=== PATIENT | male | born 1985 | race Caucasian/White ===

== ENCOUNTER 2017-06-14 13:03 | Day surgery (SDC) | payer BC ==
[~2017-06-14] VITALS: Ht 182.9 cm; Wt 101.0 kg
[2017-06-14 13:22] VITALS: BP 129/79
[2017-06-14] MEDS ORDERED: LACTATED RINGERS 1,000 ML IV SCH (14:00)
[2017-06-14] MEDS ORDERED: FENTANYL PF 100 MCG/2ML ONE (14:08)
[2017-06-14] MEDS ORDERED: MIDAZOLAM 1 MG/ML, 2ML ONE (14:08)
[2017-06-14] MEDS ORDERED: ROCURONIUM 10 MG/ML,10ML ONE (14:37)
[2017-06-14] MEDS ORDERED: ONDANSETRON 2MG/ML, 2ML ONE (14:37)
[2017-06-14] MEDS ORDERED: CEFAZOLIN 1,000 MG ONE (14:37)
[2017-06-14] MEDS ORDERED: SUCCINYLCHOLINE 20 MG/ML, 10ML ONE (14:37)
[2017-06-14] MEDS ORDERED: PROPOFOL 10 MG/ML, 20ML ONE (14:37)
[2017-06-14] MEDS ORDERED: ACETAMINOPHEN 650 MG/20.3 ML UDC ONE (16:07)
[2017-06-14] MEDS ORDERED: KETOROLAC 30 MG/1 ML ONE (16:07)
[2017-06-14] MEDS ORDERED: OXYcodone 5 MG/5 ML ORAL.SOL UDC ONE (16:07)
[2017-06-14] MEDS ORDERED: OXYcodone 5 MG/5 ML ORAL.SOL UDC PO PRN (16:30)
[2017-06-14] MEDS ORDERED: HYDROcodone/APAP 7.5-325MG/15ML UDC PO PRN (16:30)
[2017-06-14] MEDS ORDERED: FENTANYL PF 100 MCG/2ML IV PRN (16:30)
[2017-06-14] MEDS ORDERED: PROMETHAZINE 12.5 MG SUPP PR PRN (16:30)
[2017-06-14] MEDS ORDERED: hydrALAzine 20 MG/ML, 1ML IV PRN (16:30)
[2017-06-14] MEDS ORDERED: KETOROLAC 30 MG/1 ML IVPush ONE (16:30)
[2017-06-14] MEDS ORDERED: ONDANSETRON 2MG/ML, 2ML IVPush PRN (16:30)
[2017-06-14] MEDS ORDERED: ACETAMINOPHEN 325 MG TABLET PO PRN (16:30)
[2017-06-14] MEDS ORDERED: MEPERIDINE/PF 25MG/0.5ML IVPush PRN (16:30)
[2017-06-14] MEDS ORDERED: LABETALOL 5MG/ML, 20ML IV PRN (16:30)
[2017-06-14] MEDS ORDERED: morphine SULFATE 10 MG/ML, 1ML IV PRN (16:30)
== END 2017-06-14 18:15 ==
LOC: OUT 13:03
PROVIDERS: ATTEND Orthopaedic Surgery Foot and Ankle Surgery
DX: S86.012A Strain of left Achilles tendon, initial encounter (principal); X58.XXXA Exposure to other specified factors, initial encounter; Y93.89 Activity, other specified; Y92.89 Other specified places as the place of occurrence of the external cause; Y99.8 Other external cause status
CPT/HCPCS: 27650; J0330; J0690; J2250; J2405; J2704; J3010; J7120